=== PATIENT | female | born 2000 | race Two or more races ===

== ENCOUNTER 2025-07-10 17:57 | Emergency (ER) | payer OTHER, SELFPAY ==
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
[2025-07-10 18:15] VITALS: BP 138/79; BP 138/88; PULSE 88; PULSE 99; RESP 16; O2SAT 98; O2SAT 99; BMI 24.8
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
[2025-07-10 22:35] VITALS: BP 102/62; PULSE 74; RESP 20; TEMP 36.4; O2SAT 98
[2025-07-10 22:41] VITALS: BP 102/62; PULSE 74; RESP 20; TEMP 36.4; O2SAT 98
== END 2025-07-10 22:42 | disposition home or self-care (01) ==
PROVIDERS: Emergency Provider Emergency Medicine
DX: S49.91XA Unspecified injury of right shoulder and upper arm, initial encounter (principal); M25.511 Pain in right shoulder; R51.9 Headache, unspecified; M54.2 Cervicalgia; V43.52XA Car driver injured in collision with other type car in traffic accident, initial encounter; Y93.9 Activity, unspecified; Y92.410 Unspecified street and highway as the place of occurrence of the external cause; Y99.8 Other external cause status
CPT/HCPCS: 70450; 72125; 73030; 96372; 99284; J1885

== ENCOUNTER → 2025-07-10 18:22 | Outpatient (BNV) | payer OTHER, SELFPAY | PROVIDERS: Emergency Provider Emergency Medicine; Visit Provider Radiology Neuroradiology | DX: M54.2 Cervicalgia (principal); M25.511 Pain in right shoulder | CPT/HCPCS: 72125; 73030 ==